=== PATIENT | female | born 1965 | race African-American/Black ===

== ENCOUNTER → 2018-06-15 | Outpatient (CLI) | payer OTHER ==
[~2018-06-15] MED LIST: BENADRYL25 MG PO; CHERATUSSIN AC S5 ML; HYDROCODON-ACE1 EACH PO; IBUPROFEN 800800 MG PO; NORCO 5-325 TA1 EACH PO; ZALTRAP
== END ==
LOC: M.RAD 14:35
DX: M47.814 Spondylosis without myelopathy or radiculopathy, thoracic region (principal); M48.04 Spinal stenosis, thoracic region; R07.81 Pleurodynia; R06.02 Shortness of breath; M25.511 Pain in right shoulder

== ENCOUNTER 2019-03-15 10:15 | Emergency (ER) | payer OTHER ==
[~2019-03-15] VITALS: Ht 167.6 cm; Wt 65.8 kg
[2019-03-15] MEDS ORDERED: NEURONTIN300 MG PO (10:27)
[2019-03-15] MEDS ORDERED: TRAMADOL 50 MG50 MG PO (10:27)
[2019-03-15] MEDS ORDERED: ZANAFLEX4 MG PO (10:28)
[2019-03-15] MEDS ORDERED: TYLENOL WITH CO1 TA1 PO (10:28)
[2019-03-15 11:07] LABS: ABSOLUTE LYMPHOCYTES 1.4 thou/uL (0.8-5.3); ABSOLUTE MONOCYTES 0.5 thou/uL (0.0-1.2); ABSOLUTE NEUTROPHILS 3.5 thou/uL (1.6-8.1); BASOPHILS 0.6 %; EOSINOPHILS 0.6 %; HEMATOCRIT 48.5 % (37.0-47.0); HEMOGLOBIN 16.3 gm/dL (12.0-15.0); LYMPHOCYTES 25.6 %; MCH 30.8 pg (26.0-34.0); MCHC 33.6 g/dL (28.0-37.0); MCV 91.5 fL (80.0-100.0); MONOCYTES 9.1 %; MPV 7.8 fl. (7.2-11.1); NUCLEATED RBCS 0 /100WBC; PLATELET COUNT* 157 thou/uL (150-400); POLYS 64.1 %; RDW-CV 14.3 % (10.5-14.5); WBC 5.4 thou/uL (4.0-11.0)
[2019-03-15 11:14] LABS: URINE BLOOD 1+ (Negative); URINE CLARITY CLEAR; URINE COLOR YELLOW; URINE GLUCOSE-RANDOM NEGATIVE (Negative); URINE KETONES TRACE (Negative); URINE LEUKOCYTES-REFLEX NEGATIVE (Negative); URINE NITRITE-REFLEX NEGATIVE (Negative); URINE PROTEIN NEGATIVE (Negative); URINE SPECIFIC GRAVITY 1.025 (1.005-1.030); URINE UROBILINOGEN 0.2 E.U./dl (0.2-1.0)
[2019-03-15 11:15] LABS: URINE BILIRUBIN 2+ (Negative)
[2019-03-15 11:17] LABS: ICTOTEST (BILI CONFIRMATORY) Negative (Negative)
[2019-03-15 11:23] LABS: CALCIUM 9.7 mg/dL (8.5-10.1); CREATININE 0.8 mg/dL (0.6-1.3); POTASSIUM 3.7 mmol/L (3.5-5.1)
[2019-03-15 11:32] LABS: CASTS None Seen /LPF (None Seen); CRYSTALS None Seen /LPF (None Seen); MUCUS >6 Heavy strn/LPF (None Seen); SQUAMOUS 0-3 Few /LPF (0-3); URINE RBC 3-10 Few /HPF (0-2); URINE WBC-REFLEX 0-5 Rare /HPF (0-5)
[2019-03-15 11:33] LABS: TOTAL BILIRUBIN 0.5 mg/dL (<0.1-1.0); TOTAL PROTEIN 8.3 g/dL (6.4-8.2)
[2019-03-15] MEDS ORDERED: HYDROCODON-ACE1 EAC7 PO (13:54)
[2019-03-15] MEDS ORDERED: ZOFRAN ODT4 MG PO (13:54)
[2019-03-15 14:27] VITALS: BP 105/63
== END 2019-03-15 14:29 | disposition home or self-care (01) ==
LOC: M.ERS 10:15
PROVIDERS: Personal Emergency Response Attendant
DX: K52.9 Noninfective gastroenteritis and colitis, unspecified (principal); F17.210 Nicotine dependence, cigarettes, uncomplicated

== ENCOUNTER → 2020-10-29 | Outpatient (CLI) | payer OTHER ==
[~2020-10-29] MED LIST changes: +HYDROCODON-ACE1 EAC7 PO; +NEURONTIN300 MG PO; +TRAMADOL 50 MG50 MG PO; +TYLENOL WITH CO1 TA1 PO; +ZANAFLEX4 MG PO; +ZOFRAN ODT4 MG PO
== END ==
LOC: M.RAD 15:27
PROVIDERS: ATTEND Internal Medicine
DX: S92.355A Nondisplaced fracture of fifth metatarsal bone, left foot, initial encounter for closed fracture (principal); M25.572 Pain in left ankle and joints of left foot; M79.672 Pain in left foot; X58.XXXA Exposure to other specified factors, initial encounter; Y92.89 Other specified places as the place of occurrence of the external cause; Y93.89 Activity, other specified; Y99.8 Other external cause status